=== PATIENT | male | born 2000 | race Caucasian/White ===

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

== ENCOUNTER → 2018-01-29 | Outpatient (CLI) | payer OTHER ==
[~2018-01-29] MED LIST changes: +MIRT15TA6 PO; +MIRT45TA6 PO; +RIZA10TA20 PO; +SERT100T5 PO
[2018-01-29 13:34] LABS: MICROSCOPIC NOT IND
[2018-01-29 13:48] LABS: CULTURE INDICATED? NO
== END | disposition home or self-care (01) ==
LOC: LAB 13:03
PROVIDERS: ATTEND Psychiatry & Neurology Psychiatry
DX: R35.0 Frequency of micturition (principal)
CPT/HCPCS: 81003

== ENCOUNTER 2018-01-30 18:33 | Inpatient (IN) | payer OTHER ==
[~2018-01-30] VITALS: Ht 165.1 cm; Wt 72.9 kg
[~2018-01-30 18:33] MED LIST changes: -MIRT15TA6 PO; -MIRT45TA6 PO; -RIZA10TA20 PO; -SERT100T5 PO
[2018-01-30] MEDS ORDERED: MIRT45TA6 PO (18:56)
[2018-01-30] MEDS ORDERED: RIZA10TA20 PO (18:57)
[2018-01-30] MEDS ORDERED: DIAZ2TAB3 PO (18:58)
[2018-01-30 20:00] LABS: BASOPHILS # (AUTO) 0.01 x10^3/uL (0-0.3); BASOPHILS % (AUTO) 0 % (0-1); EOSINOPHILS # (AUTO) 0.04 x10^3/uL (0-0.8); EOSINOPHILS % (AUTO) 1 % (1-7); LYMPHOCYTES # (AUTO) 2.28 x10^3/uL (1-6.1); LYMPHOCYTES % (AUTO) 47 % (22-44); MD NO; MEAN CORPUSCULAR HEMOGLOBIN 31.5 pg (27.5-34.5); MEAN CORPUSCULAR HGB CONC 34.7 g/dL (33.2-36.2); MEAN CORPUSCULAR VOLUME 90.7 fL (81-97); MEAN PLATELET VOLUME 8.4 fL (7.4-10.4); MONOCYTES # (AUTO) 0.42 x10^3/uL (0-1.4); MONOCYTES % (AUTO) 9 % (2-9); NEUTROPHILS % (AUTO) 43 % (42-75); PLATELET COUNT 228 x10^3/uL (130-400); RED BLOOD COUNT 5.07 x10^6/uL (4.38-5.82); RED CELL DISTRIBUTION WIDTH 12.8 % (9.4-14.8)
[2018-01-30] MEDS ORDERED: SODIUM CHLORIDE FLUSH 10ML SYR IVF ONE (20:00)
[2018-01-30 20:11] LABS: ALBUMIN 3.7 g/dL (3.4-5.0); ANION GAP 13 mmol/L (5-15); CALCIUM 8.4 mg/dL (8.5-10.1); CHLORIDE 112 mmol/L (98-107)
[2018-01-30 20:14] LABS: ALANINE AMINOTRANSFERASE 38 U/L (12-78); ALKALINE PHOSPHATASE 47 U/L (45-117); BILIRUBIN,TOTAL 0.5 mg/dL (0.2-1.0); CREATININE 0.87 mg/dL (0.7-1.3); TOTAL PROTEIN 6.4 g/dL (6.4-8.2)
[2018-01-30 21:03] LABS: MICROSCOPIC NOT IND
[2018-01-30] MEDS ORDERED: LORazepam 2 MG/ML, 1ML ONE ×2 (21:03→22:51)
[2018-01-30 21:07] LABS: CULTURE INDICATED? NO
[2018-01-30] MEDS ORDERED: LORazepam 2 MG/ML, 1ML IVPush STA ×3 (21:09→23:44)
[2018-01-30 21:16] LABS: AMPHETAMINE SCREEN, URINE Negative (Negative); BARBITURATE SCREEN, URINE Negative (Negative); BENZODIAZEPINE SCREEN, URINE Positive (Negative); CANNABINOID SCREEN, URINE Negative (Negative); COCAINE SCREEN, URINE Negative (Negative); METHADONE SCREEN, URINE Negative (Negative); OPIATE SCREEN, URINE Negative (Negative)
[2018-01-30] MEDS ORDERED: VALPROATE SODIUM 500 MG in DEXTROSE 5% 100 ML IV ONE (22:38)
[2018-01-30] MEDS ORDERED: LACOSAMIDE 100 MG in SODIUM CHLORIDE 0.9% 100 ML IV ONE (22:38)
[2018-01-31] MEDS ORDERED: ONDANSETRON 2MG/ML, 2ML IVPush PRN (01:30)
[2018-01-31] MEDS ORDERED: ACETAMINOPHEN 325 MG TABLET PO PRN (01:30)
[2018-01-31] MEDS ORDERED: LORazepam 2 MG/ML, 1ML IVPush PRN (01:30)
[2018-01-31] MEDS ORDERED: ONDANSETRON ODT 4 MG PO PRN (01:30)
[2018-01-31] MEDS ORDERED: PROMETHAZINE 25 MG/ML, 1ML IM PRN (01:30)
[2018-01-31 01:55] VITALS: BP 133/83
[2018-01-31 04:00] VITALS: BP 115/62
[2018-01-31 05:46] LABS: CLOSTRIDIUM DIFFICILE ANTIGEN NEGATIVE; CLOSTRIDIUM DIFFICILE TOXIN NEGATIVE (Negative)
[2018-01-31] MEDS: SODIUM CHLORIDE 0.9% 1,000 ML IV SCH ×2 (07:36→17:00)
[2018-01-31] MEDS: RIZATRIPTAN 10MG TABLET PO SCH (08:51)
[2018-01-31] MEDS: CITALOPRAM 20 MG TABLET PO SCH (08:53)
[2018-01-31] MEDS: MIRTAZAPINE 15 MG TAB.RAPDIS PO SCH (08:53)
[2018-01-31 10:18] LABS: ALANINE AMINOTRANSFERASE 47 U/L (12-78); ALBUMIN 3.5 g/dL (3.4-5.0); ANION GAP 7 mmol/L (5-15); CALCIUM 8.4 mg/dL (8.5-10.1); CHLORIDE 110 mmol/L (98-107); CREATININE 0.88 mg/dL (0.7-1.3)
[2018-01-31 10:20] LABS: ALKALINE PHOSPHATASE 46 U/L (45-117); BILIRUBIN,TOTAL 0.8 mg/dL (0.2-1.0); TOTAL PROTEIN 6.3 g/dL (6.4-8.2)
[2018-01-31] MEDS ORDERED: LACOSAMIDE 100 MG in SODIUM CHLORIDE 0.9% 100 ML IV SCH (11:00)
[2018-01-31 13:51] LABS: GLUCOSE, CSF 55 mg/dL (40-80); TOTAL PROTEIN,CSF 26 mg/dL (15-45)
[2018-01-31 16:29] VITALS: BP 116/63
[2018-01-31] MEDS: VALPROATE SODIUM 250 MG in DEXTROSE 5% 100 ML IV SCH (20:48)
[2018-01-31 21:09] VITALS: BP 132/80
[2018-02-01] MEDS: SODIUM CHLORIDE 0.9% 1,000 ML IV SCH ×3 (03:54→23:53)
[2018-02-01 04:45] VITALS: BP 117/70
[2018-02-01 05:25] LABS: CHLORIDE 111 mmol/L (98-107)
[2018-02-01 05:32] LABS: ALANINE AMINOTRANSFERASE 38 U/L (12-78); ALBUMIN 3.2 g/dL (3.4-5.0); ALKALINE PHOSPHATASE 47 U/L (45-117); ANION GAP 8 mmol/L (5-15); CALCIUM 8.3 mg/dL (8.5-10.1); CREATININE 0.75 mg/dL (0.7-1.3); MEAN CORPUSCULAR HEMOGLOBIN 31.8 pg (27.5-34.5); MEAN CORPUSCULAR HGB CONC 35.5 g/dL (33.2-36.2); MEAN CORPUSCULAR VOLUME 89.6 fL (81-97); MEAN PLATELET VOLUME 8.3 fL (7.4-10.4); PLATELET COUNT 197 x10^3/uL (130-400); RED BLOOD COUNT 4.82 x10^6/uL (4.38-5.82); RED CELL DISTRIBUTION WIDTH 13.3 % (9.4-14.8); TOTAL PROTEIN 5.6 g/dL (6.4-8.2)
[2018-02-01 06:15] LABS: BASOPHILS # (AUTO) 0.02 x10^3/uL (0-0.3); BASOPHILS % (AUTO) 0 % (0-1); EOSINOPHILS # (AUTO) 0.11 x10^3/uL (0-0.8); EOSINOPHILS % (AUTO) 2 % (1-7); LYMPHOCYTES # (AUTO) 2.88 x10^3/uL (1-6.1); LYMPHOCYTES % (AUTO) 47 % (22-44); MD SCAN; MONOCYTES # (AUTO) 0.69 x10^3/uL (0-1.4); MONOCYTES % (AUTO) 11 % (2-9); NEUTROPHILS % (AUTO) 39 % (42-75)
[2018-02-01] MEDS: RIZATRIPTAN 10MG TABLET PO SCH (09:00)
[2018-02-01] MEDS: VALPROATE SODIUM 250 MG in DEXTROSE 5% 100 ML IV SCH ×2 (10:16→20:14)
[2018-02-01] MEDS: CITALOPRAM 20 MG TABLET PO SCH (10:17)
[2018-02-01 10:26] VITALS: BP 112/72
[2018-02-01 19:11] VITALS: BP 121/82
[2018-02-01 19:31] VITALS: BP 124/79
[2018-02-01] MEDS: MIRTAZAPINE 15 MG TAB.RAPDIS PO SCH (20:18)
[2018-02-02 01:20] VITALS: BP 105/69
[2018-02-02] MEDS: RIZATRIPTAN 10MG TABLET PO SCH (09:00)
[2018-02-02] MEDS: SODIUM CHLORIDE 0.9% 1,000 ML IV SCH (09:12)
[2018-02-02] MEDS: CITALOPRAM 20 MG TABLET PO SCH (09:13)
[2018-02-02] MEDS: MIRTAZAPINE 15 MG TAB.RAPDIS PO SCH (09:13)
[2018-02-02] MEDS: DIVALPROEX 250 MG TABLET.DR PO SCH ×2 (09:14→20:25)
[2018-02-02] MEDS: SERTRALINE 50MG TABLET PO SCH (09:14)
[2018-02-02 09:31] VITALS: BP 119/78
[2018-02-02 13:31] VITALS: BP 126/78
[2018-02-02 19:03] VITALS: BP 112/75
[2018-02-02 21:23] VITALS: BP 128/80
[2018-02-03 08:20] VITALS: BP 114/78
[2018-02-03] MEDS: SERTRALINE 50MG TABLET PO SCH (08:39)
[2018-02-03] MEDS: DIVALPROEX 250 MG TABLET.DR PO SCH ×2 (08:39→21:02)
[2018-02-03] MEDS: CITALOPRAM 20 MG TABLET PO SCH (08:39)
[2018-02-03] MEDS: RIZATRIPTAN 10MG TABLET PO SCH (12:20)
[2018-02-03 19:36] VITALS: BP 122/80
[2018-02-03] MEDS: MIRTAZAPINE 15 MG TAB.RAPDIS PO SCH (21:02)
[2018-02-04 08:15] VITALS: BP 116/73
[2018-02-04] MEDS: SERTRALINE 100MG TABLET PO SCH (08:53)
[2018-02-04] MEDS: RIZATRIPTAN 10MG TABLET PO SCH (08:53)
[2018-02-04] MEDS: DIVALPROEX 250 MG TABLET.DR PO SCH ×2 (08:54→21:01)
[2018-02-04 19:43] VITALS: BP 121/78
[2018-02-04] MEDS: MIRTAZAPINE 15 MG TAB.RAPDIS PO SCH (21:01)
[2018-02-05 08:00] VITALS: BP 127/83
[2018-02-05] MEDS: SERTRALINE 100MG TABLET PO SCH (08:09)
[2018-02-05] MEDS: DIVALPROEX 250 MG TABLET.DR PO SCH (08:09)
[2018-02-05] MEDS: RIZATRIPTAN 10MG TABLET PO SCH (08:09)
[2018-02-05] MEDS ORDERED: MIRT15TA6 PO (13:16)
[2018-02-05] MEDS ORDERED: SERT100T5 PO (13:16)
[2018-02-05] MEDS ORDERED: DIVA-59 PO (13:16)
[2018-02-05] MEDS ORDERED: RIZA10TA20 PO (13:16)
== END 2018-02-05 12:00 | DRG 26 ==
LOC: ED 23:04 → EDIP 23:41 → CCU 01-31 01:40 → 4WST 01-31 16:26 → 2N 02-02 21:12
PROVIDERS: ADMIT Hospitalist; ATTEND Hospitalist
PROC: 00963ZZ Drainage of Cerebral Ventricle, Percutaneous Approach (ICD-10-PCS; principal; 2018-01-31)
DX: G40.401 Other generalized epilepsy and epileptic syndromes, not intractable, with status epilepticus (principal); G91.9 Hydrocephalus, unspecified; E72.20 Disorder of urea cycle metabolism, unspecified; R45.851 Suicidal ideations; F29 Unspecified psychosis not due to a substance or known physiological condition; Z88.8 Allergy status to other drugs, medicaments and biological substances; E87.6 Hypokalemia; F41.1 Generalized anxiety disorder; F90.9 Attention-deficit hyperactivity disorder, unspecified type; Z87.820 Personal history of traumatic brain injury; Z91.5 Personal history of self-harm; Z98.2 Presence of cerebrospinal fluid drainage device; F79 Unspecified intellectual disabilities; G93.89 Other specified disorders of brain; Z80.1 Family history of malignant neoplasm of trachea, bronchus and lung; Z82.49 Family history of ischemic heart disease and other diseases of the circulatory system; F32.9 Major depressive disorder, single episode, unspecified
CPT/HCPCS: 36415; 70450; 71045; 74018; 80053; 80164; 80307; 81003; 82140; 82945; 83735; 84100; 84157; 85025; 87070; 87081; 87205; 87324; 89051; 95951; 96365; 96375; 96376; C9254; G0378; J2060; J7030

== ENCOUNTER 2018-02-05 20:37 | Emergency (ER) | payer OTHER ==
[~2018-02-05] VITALS: Ht 162.6 cm; Wt 67.3 kg
[~2018-02-05 20:37] MED LIST changes: +MIRT15TA6 PO; +MIRT45TA6 PO; +RIZA10TA20 PO; +SERT100T5 PO
[2018-02-05 21:17] LABS: BASOPHILS # (AUTO) 0.02 x10^3/uL (0-0.3); BASOPHILS % (AUTO) 0 % (0-1); EOSINOPHILS # (AUTO) 0.04 x10^3/uL (0-0.8); EOSINOPHILS % (AUTO) 1 % (1-7); LYMPHOCYTES # (AUTO) 1.65 x10^3/uL (1-6.1); LYMPHOCYTES % (AUTO) 23 % (22-44); MD NO; MEAN CORPUSCULAR HEMOGLOBIN 31.6 pg (27.5-34.5); MEAN CORPUSCULAR HGB CONC 35.2 g/dL (33.2-36.2); MEAN CORPUSCULAR VOLUME 89.7 fL (81-97); MEAN PLATELET VOLUME 8.4 fL (7.4-10.4); MONOCYTES % (AUTO) 10 % (2-9); NEUTROPHILS # (AUTO) 4.92 x10^3/uL (1.8-8.0); NEUTROPHILS % (AUTO) 67 % (42-75); PLATELET COUNT 243 x10^3/uL (130-400); RED BLOOD COUNT 5.32 x10^6/uL (4.38-5.82)
[2018-02-05 21:30] LABS: ALANINE AMINOTRANSFERASE 41 U/L (12-78); ALBUMIN 4.1 g/dL (3.4-5.0); ANION GAP 12 mmol/L (5-15); CALCIUM 8.9 mg/dL (8.5-10.1); CHLORIDE 109 mmol/L (98-107); CREATININE 1.21 mg/dL (0.7-1.3)
[2018-02-05 21:32] LABS: SALICYLATE LEVEL < 1.7 mg/dL (2.8-20.0)
[2018-02-05 21:33] LABS: ALKALINE PHOSPHATASE 54 U/L (45-117); BILIRUBIN,TOTAL 0.5 mg/dL (0.2-1.0); TOTAL PROTEIN 7.1 g/dL (6.4-8.2)
[2018-02-05 21:34] LABS: ACETAMINOPHEN < 2 mcg/mL (10-30)
[2018-02-05 21:53] LABS: AMPHETAMINE SCREEN, URINE Negative (Negative); BARBITURATE SCREEN, URINE Negative (Negative); BENZODIAZEPINE SCREEN, URINE Negative (Negative); CANNABINOID SCREEN, URINE Negative (Negative); COCAINE SCREEN, URINE Negative (Negative); METHADONE SCREEN, URINE Negative (Negative); OPIATE SCREEN, URINE Negative (Negative)
[2018-02-05 22:13] VITALS: BP 123/67
[2018-02-05] MEDS ORDERED: SODIUM CHLORIDE FLUSH 10ML SYR IVF ONE (22:30)
[2018-02-05] MEDS ORDERED: VALPROATE SODIUM 500 MG in DEXTROSE 5% 100 ML IV ONE (22:30)
== END 2018-02-06 00:31 ==
LOC: ED 20:53
DX: G40.409 Other generalized epilepsy and epileptic syndromes, not intractable, without status epilepticus (principal); Z02.89 Encounter for other administrative examinations
CPT/HCPCS: 36415; 80053; 80164; 80307; 80329; 82140; 85025; 93005; 99285; G0480

== ENCOUNTER 2018-10-15 19:00 | Emergency (ER) | payer MEDICAID ==
[~2018-10-15] VITALS: Ht 165.1 cm; Wt 57.0 kg
[~2018-10-15 19:00] MED LIST changes: +LAMO25TA6 PO; -MIRT15TA6 PO; +MIRT15TA94 PO; +MIRT45TA57 PO; -MIRT45TA6 PO; +SERT100T32 PO; -SERT100T5 PO
--- NOTE | 2018-10-15 19:10 | NUR ---
PT WITH MOTHER WHEN HE HAD A SEIZURE. HE HAD ONE A MONTH AGO ALSO. HAS A HISTORY OF SEIZURES BUT THEY HAVE BEEN HAPPENING ONCE A MONTH NOW, WHICH IS AN INCREASE IN OCCURENCES. PT HAD PROCESS ENGINEERING INTERN SHUNT IMAGING DONE RECENTLY BECAUSE OF THE INCREASE IN SEIZURES AND SHUNT IS PATENT. PT A&O, CONVERSING WITH MOTHER. SEIZURE PADS IN PLACE ON ARRIVAL TO ER
[2018-10-15 19:20] LABS: BASOPHILS # (AUTO) 0.02 x10^3/uL (0-0.3); BASOPHILS % (AUTO) 0 % (0-1); EOSINOPHILS # (AUTO) 0.02 x10^3/uL (0-0.8); EOSINOPHILS % (AUTO) 0 % (1-7); LYMPHOCYTES # (AUTO) 1.03 x10^3/uL (1-6.1); LYMPHOCYTES % (AUTO) 14 % (22-44); MD NO; MEAN CORPUSCULAR HEMOGLOBIN 30.3 pg (27.5-34.5); MEAN CORPUSCULAR HGB CONC 33.8 g/dL (33.2-36.2); MEAN CORPUSCULAR VOLUME 89.7 fL (81-97); MONOCYTES # (AUTO) 0.49 x10^3/uL (0-1.4); MONOCYTES % (AUTO) 7 % (2-9); NEUTROPHILS # (AUTO) 6.03 x10^3/uL (1.8-8.0); NEUTROPHILS % (AUTO) 79 % (42-75); PLATELET COUNT 263 x10^3/uL (130-400); RED BLOOD COUNT 5.04 x10^6/uL (4.38-5.82); RED CELL DISTRIBUTION WIDTH 12.9 % (9.4-14.8)
[2018-10-15] MEDS ORDERED: ACETAMINOPHEN 500 MG TABLET PO ONE (19:30)
[2018-10-15 19:32] LABS: ALANINE AMINOTRANSFERASE 22 U/L (12-78); ANION GAP 7 mmol/L (5-15); CALCIUM 8.4 mg/dL (8.5-10.1); CHLORIDE 104 mmol/L (98-107); CREATININE 1.03 mg/dL (0.7-1.3)
[2018-10-15 19:34] LABS: ALKALINE PHOSPHATASE 55 U/L (45-117); BILIRUBIN,TOTAL 0.4 mg/dL (0.2-1.0); TOTAL PROTEIN 6.3 g/dL (6.4-8.2)
--- NOTE | 2018-10-15 20:03 | NUR ---
NO ADDITIONAL SEIZURE ACTIVITY, NO DISTRESS. AWAITING DISPO
--- NOTE | 2018-10-15 20:32 | NUR ---
TO CT AND BACK. MOTHER EXPRESSING HER CONCERN FOR WHY THE PT HAS INCREASED URINE OUTPUT AFTER SEIZURES. PT HAS URINATED 800 ML AND IS ASKING TO USE URINAL AGAIN. URINE CLEAR AND YELLOW
[2018-10-15 20:45] LABS: MICROSCOPIC NOT IND
[2018-10-15 20:49] LABS: CULTURE INDICATED? NO
--- NOTE | 2018-10-15 21:09 | NUR ---
REPORT TO KARLIE COLLAZO
[2018-10-15 21:24] VITALS: BP 120/72
--- NOTE | 2018-10-15 21:24 | NUR ---
ASSIST RN: PATIENT DISCHARGED WITH INSTRUCTION. VERBALIZED UNDERSTANDING.
== END 2018-10-15 21:27 | disposition home or self-care (01) ==
LOC: ED 20:09
DX: S00.512A Abrasion of oral cavity, initial encounter (principal); G40.319 Generalized idiopathic epilepsy and epileptic syndromes, intractable, without status epilepticus; R51 Headache; X58.XXXA Exposure to other specified factors, initial encounter; Y93.89 Activity, other specified; Y92.89 Other specified places as the place of occurrence of the external cause; Y99.8 Other external cause status
CPT/HCPCS: 36415; 70450; 80053; 81003; 85025; 99284

== ENCOUNTER 2019-02-27 17:45 | Inpatient (IN) | payer MEDICAID ==
[~2019-02-27] VITALS: Ht 165.1 cm; Wt 64.5 kg
[2019-02-27] MEDS ORDERED: SODIUM CHLORIDE FLUSH 10ML SYR IVF ONE (18:30)
[2019-02-27] MEDS ORDERED: ONDANSETRON 2MG/ML, 2ML ONE (18:45)
[2019-02-27] MEDS ORDERED: LORazepam 2 MG/ML, 1ML ONE (18:45)
[2019-02-27] MEDS ORDERED: LORazepam 2 MG/ML, 1ML IVPush ONE (19:00)
[2019-02-27] MEDS ORDERED: ONDANSETRON 2MG/ML, 2ML IVPush ONE (19:00)
[2019-02-27 19:08] LABS: BASOPHILS # (AUTO) 0.01 x10^3/uL (0-0.3); BASOPHILS % (AUTO) 0 % (0-1); EOSINOPHILS # (AUTO) 0.15 x10^3/uL (0-0.8); EOSINOPHILS % (AUTO) 1 % (1-7); LYMPHOCYTES # (AUTO) 0.93 x10^3/uL (1-6.1); LYMPHOCYTES % (AUTO) 7 % (22-44); MD NO; MEAN CORPUSCULAR HEMOGLOBIN 31.2 pg (27.5-34.5); MEAN CORPUSCULAR HGB CONC 34.8 g/dL (33.2-36.2); MEAN CORPUSCULAR VOLUME 89.7 fL (81-97); MEAN PLATELET VOLUME 7.8 fL (7.4-10.4); MONOCYTES # (AUTO) 0.81 x10^3/uL (0-1.4); MONOCYTES % (AUTO) 6 % (2-9); NEUTROPHILS # (AUTO) 12.42 x10^3/uL (1.8-8.0); NEUTROPHILS % (AUTO) 87 % (42-75); PLATELET COUNT 285 x10^3/uL (130-400); RED BLOOD COUNT 5.27 x10^6/uL (4.38-5.82); RED CELL DISTRIBUTION WIDTH 12.2 % (9.4-14.8)
[2019-02-27 19:19] LABS: MICROSCOPIC AUTO
[2019-02-27 19:21] LABS: ALBUMIN 4.1 g/dL (3.4-5.0); ANION GAP 12 mmol/L (5-15); CALCIUM 8.7 mg/dL (8.5-10.1); CHLORIDE 97 mmol/L (98-107)
[2019-02-27 19:25] LABS: ALANINE AMINOTRANSFERASE 47 U/L (12-78); ALKALINE PHOSPHATASE 71 U/L (45-117); BILIRUBIN,TOTAL 0.6 mg/dL (0.2-1.0); CREATININE 0.96 mg/dL (0.7-1.3); TOTAL PROTEIN 6.7 g/dL (6.4-8.2)
[2019-02-27 19:27] LABS: AMPHETAMINE SCREEN, URINE Negative (Negative); BARBITURATE SCREEN, URINE Negative (Negative); BENZODIAZEPINE SCREEN, URINE Negative (Negative); CANNABINOID SCREEN, URINE Negative (Negative); CULTURE INDICATED? NO; METHADONE SCREEN, URINE Negative (Negative)
[2019-02-27 19:28] LABS: COCAINE SCREEN, URINE Negative (Negative); OPIATE SCREEN, URINE Negative (Negative)
[2019-02-27] MEDS ORDERED: GADOTERATE 7.5 MMOL/15 ML SYR ONE (19:39)
[2019-02-27] MEDS ORDERED: HYDROcodone/APAP 5/325 TABLET PO ONE (20:30)
[2019-02-27] MEDS ORDERED: SODIUM CHLORIDE FLUSH 10ML SYR IVF PRN (20:30)
[2019-02-27] MEDS ORDERED: HYDROcodone/APAP 5/325 TABLET ONE (20:37)
[2019-02-27 21:47] VITALS: BP 139/76
[2019-02-27] MEDS ORDERED: POTASSIUM CHLORIDE 20 MEQ TAB.ER.PRT PO ONE (22:30)
[2019-02-27] MEDS ORDERED: LORazepam 2 MG/ML, 1ML IVPush PRN (22:30)
[2019-02-27] MEDS ORDERED: LIDODERM 5% PATCH TD PRN (22:30)
[2019-02-27] MEDS ORDERED: DOCUSATE 100 MG CAPSULE PO PRN (22:30)
[2019-02-27] MEDS ORDERED: ONDANSETRON 2MG/ML, 2ML IVPush PRN (22:30)
[2019-02-27] MEDS ORDERED: ACETAMINOPHEN 325 MG TABLET PO PRN (22:30)
[2019-02-27] MEDS ORDERED: hydrALAzine 20 MG/ML, 1ML IVPush PRN (22:30)
[2019-02-28 03:23] VITALS: BP 114/72
[2019-02-28 05:42] LABS: ANION GAP 5 mmol/L (5-15); CALCIUM 9.2 mg/dL (8.5-10.1); CHLORIDE 107 mmol/L (98-107)
[2019-02-28 05:43] LABS: CREATININE 1.02 mg/dL (0.7-1.3)
[2019-02-28 05:53] LABS: BASOPHILS # (AUTO) 0.03 x10^3/uL (0-0.3); BASOPHILS % (AUTO) 0 % (0-1); EOSINOPHILS # (AUTO) 0.04 x10^3/uL (0-0.8); EOSINOPHILS % (AUTO) 1 % (1-7); LYMPHOCYTES % (AUTO) 26 % (22-44); MD NO; MEAN CORPUSCULAR HEMOGLOBIN 30.6 pg (27.5-34.5); MEAN CORPUSCULAR HGB CONC 34.1 g/dL (33.2-36.2); MEAN CORPUSCULAR VOLUME 89.8 fL (81-97); MEAN PLATELET VOLUME 7.7 fL (7.4-10.4); MONOCYTES # (AUTO) 0.86 x10^3/uL (0-1.4); MONOCYTES % (AUTO) 11 % (2-9); NEUTROPHILS # (AUTO) 4.98 x10^3/uL (1.8-8.0); NEUTROPHILS % (AUTO) 62 % (42-75); PLATELET COUNT 300 x10^3/uL (130-400); RED CELL DISTRIBUTION WIDTH 12.6 % (9.4-14.8)
[2019-02-28] MEDS: SERTRALINE 100MG TABLET PO SCH (08:05)
[2019-02-28] MEDS: LAMOTRIGINE 100 MG TABLET PO SCH (08:05)
[2019-02-28] MEDS: ENOXAPARIN 40 MG/0.4 ML SQ SCH (08:05)
[2019-02-28 08:54] VITALS: BP 119/74
[2019-02-28] MEDS ORDERED: MIRTAZAPINE 15 MG TABLET PO SCH ×2 (09:00→20:30)
[2019-02-28] MEDS ORDERED: SODIUM CHLORIDE 0.9% 1,000ML IVBOLUS ONE (10:00)
[2019-02-28] MEDS ORDERED: PHENOL THROAT SPRAY BOTTLE MM PRN (10:00)
[2019-02-28] MEDS: LIDOCAINE 2% VISCOUS 15 ML UDC MM PRN ×2 (10:52→12:38)
[2019-02-28 14:14] VITALS: BP 122/72
[2019-02-28 19:28] VITALS: BP 124/75
[2019-03-01 01:16] VITALS: BP 104/67
[2019-03-01 08:30] VITALS: BP 115/75
[2019-03-01] MEDS: SERTRALINE 100MG TABLET PO SCH (09:01)
[2019-03-01] MEDS: LAMOTRIGINE 100 MG TABLET PO SCH (09:01)
[2019-03-01] MEDS: ENOXAPARIN 40 MG/0.4 ML SQ SCH (09:01)
[2019-03-01] MEDS ORDERED: LAMOTRIGINE 200 MG TABLET PO ONE (12:00)
[2019-03-01] MEDS ORDERED: PHEN177S5 MM (13:39)
[2019-03-01] MEDS ORDERED: LAMO100T PO (13:39)
[2019-03-01 14:41] VITALS: BP 119/74
[2019-03-01] MEDS ORDERED: FLU VACC QS2019-20 36MOS UP/PF 0.5 ML IM-VACC ONE (15:30)
[2019-03-01] MEDS ORDERED: MIRTAZAPINE 15 MG TABLET PO SCH (21:00)
[2019-03-02] MEDS ORDERED: LAMOTRIGINE 100 MG TABLET PO SCH (09:00)
== END 2019-03-01 15:45 | disposition home or self-care (01) | DRG 101 ==
LOC: ED 20:41 → EDIP 21:06 → 4EST 21:17
PROVIDERS: ADMIT Internal Medicine; ATTEND Internal Medicine
DX: G40.A09 Absence epileptic syndrome, not intractable, without status epilepticus (principal); F33.9 Major depressive disorder, recurrent, unspecified; E87.1 Hypo-osmolality and hyponatremia; E86.9 Volume depletion, unspecified; E87.6 Hypokalemia; F79 Unspecified intellectual disabilities; F90.9 Attention-deficit hyperactivity disorder, unspecified type; G93.89 Other specified disorders of brain; Z98.2 Presence of cerebrospinal fluid drainage device; Z87.820 Personal history of traumatic brain injury; Z82.49 Family history of ischemic heart disease and other diseases of the circulatory system
CPT/HCPCS: 36415; 70553; 80048; 80053; 80175; 80307; 81001; 85025; 87081; 87147; 87880; 90686; 93005; 96374; G0378; J1650; J2405; A9575; J2060; J7030

== ENCOUNTER 2019-05-22 17:41 | Inpatient (IN) | payer MEDICAID ==
[~2019-05-22] VITALS: Ht 165.1 cm; Wt 65.6 kg
[~2019-05-22 17:41] MED LIST changes: +LAMO100T PO; +[UNRECOGNIZED DRUG - CODE] MM
--- NOTE | 2019-05-22 17:51 | NUR ---
Pt hx of tonic clonic sz and has had "too many to count" seizures since 1500 this pm. Seizures decsribed tonight more of a focal seizure, denies focal sz in past. Actively sz for remsa, given 7 mg versed en route. 2 mg last given @1720. Becoming increasingly more lucid in ed. Strengths strong and equal. Pupils "blown" and sluggish to respond. Pt is a+ox2, but responds to all commands. Aware of who mom is in room. Presents w/ moderate nystagmus and "the room is spinning." Denies any drug use or etoh. Sz typically controlled w/ medications and neurologist Oc. All monitoring applied. Pt hr elevated and mild temp noted. Sz pads applied, suction in place, ativan prepped via md verbal order.
[2019-05-22] MEDS ORDERED: LORazepam 2 MG/ML, 1ML ONE ×3 (17:56→20:09)
[2019-05-22] MEDS ORDERED: LORazepam 2 MG/ML, 1ML IVPush ONE ×2 (18:00→20:30)
[2019-05-22] MEDS ORDERED: SODIUM CHLORIDE FLUSH 10ML SYR IVF ONE (18:00)
[2019-05-22 18:10] LABS: BASOPHILS # (AUTO) 0.03 x10^3/uL (0-0.3); BASOPHILS % (AUTO) 1 % (0-1); EOSINOPHILS % (AUTO) 0 % (1-7); LYMPHOCYTES # (AUTO) 1.02 x10^3/uL (1-6.1); LYMPHOCYTES % (AUTO) 14 % (22-44); MD NO; MEAN CORPUSCULAR HEMOGLOBIN 30.6 pg (27.5-34.5); MEAN CORPUSCULAR HGB CONC 34.3 g/dL (33.2-36.2); MEAN CORPUSCULAR VOLUME 89.3 fL (81-97); MONOCYTES # (AUTO) 0.42 x10^3/uL (0-1.4); MONOCYTES % (AUTO) 6 % (2-9); NEUTROPHILS # (AUTO) 5.88 x10^3/uL (1.8-8.0); NEUTROPHILS % (AUTO) 80 % (42-75); PLATELET COUNT 296 x10^3/uL (130-400); RED CELL DISTRIBUTION WIDTH 12.2 % (9.4-14.8)
--- NOTE | 2019-05-22 18:26 | NUR ---
Report from ZAY Marshall.
--- NOTE | 2019-05-22 18:32 | NUR ---
Patient A&Ox3, but remains lethargic. Parents at bedside. Awaiting CT.
[2019-05-22 18:37] LABS: ALANINE AMINOTRANSFERASE 29 U/L (12-78); ALBUMIN 3.8 g/dL (3.4-5.0); ANION GAP 7 mmol/L (5-15); CALCIUM 8.3 mg/dL (8.5-10.1); CHLORIDE 114 mmol/L (98-107); CREATININE 0.85 mg/dL (0.7-1.3)
[2019-05-22 18:39] LABS: ALKALINE PHOSPHATASE 66 U/L (45-117); BILIRUBIN,TOTAL 0.4 mg/dL (0.2-1.0); TOTAL PROTEIN 6.6 g/dL (6.4-8.2)
[2019-05-22 18:40] LABS: SALICYLATE LEVEL < 1.7 mg/dL (2.8-20.0)
--- NOTE | 2019-05-22 19:10 | NUR ---
Back from CT. Per ZAY Marshall patient had several petite mal seizures in CT. Medicated by ZAY Marshall. Will continue to monitor.
--- NOTE | 2019-05-22 19:10 | NUR ---
Pt had multiple petite mal sz w/ minimal postictal phase in ct. This rn gave 2 mg iv ativan per emar. ERMD made aware and main nurse made aware. Pt back in room and a+ox3 and converses appropriately. All monitoring reapplied.
--- NOTE | 2019-05-22 19:24 | NUR ---
A&Ox4. Remains tachycardic. BP stable.
[2019-05-22] MEDS ORDERED: VALPROATE SODIUM 100 MG/ML, 5ML IV STA (19:52)
--- NOTE | 2019-05-22 20:15 | NUR ---
Patient had multiple petite mal seizures while in room. Eileen ramirez and eros go.
[2019-05-22] MEDS ORDERED: VALPROATE SODIUM 1,000 MG in DEXTROSE 5% 100 ML IV ONE (20:30)
--- NOTE | 2019-05-22 20:31 | NUR ---
HR remains around 135-140. Patient postictal. Straight cath urine sent to lab. Plan is to admit to the ICU.
[2019-05-22 20:58] LABS: MICROSCOPIC NOT IND
[2019-05-22] MEDS ORDERED: SODIUM CHLORIDE 0.9% 1,000ML IVBOLUS ONE ×2 (21:00→23:00)
[2019-05-22 21:01] LABS: CULTURE INDICATED? NO
[2019-05-22 21:07] LABS: AMPHETAMINE SCREEN, URINE Negative (Negative); BARBITURATE SCREEN, URINE Negative (Negative); BENZODIAZEPINE SCREEN, URINE Positive (Negative); CANNABINOID SCREEN, URINE Negative (Negative); COCAINE SCREEN, URINE Negative (Negative); METHADONE SCREEN, URINE Negative (Negative); OPIATE SCREEN, URINE Negative (Negative)
--- NOTE | 2019-05-22 21:07 | NUR ---
Report received from ZAY Montez Pt responding to simple questions from mom. Bilateral feet shaking noted. Depakote continues to run. Pt placed on 2L NC for sats in the low 90's. 2L NS started. 16g PIV placed to right forearm. Admitting MD at bedside.
[2019-05-22] MEDS ORDERED: SODIUM CHLORIDE 0.9% 1,000 ML IV ONE (21:10)
--- NOTE | 2019-05-22 21:47 | NUR ---
Report called to ZAY Doll Pt status unchanged.
[2019-05-22] MEDS ORDERED: ACETAMINOPHEN 650 MG SUPP PR PRN (22:00)
[2019-05-22] MEDS ORDERED: LORazepam 2 MG/ML, 1ML IV PRN (22:00)
[2019-05-22] MEDS ORDERED: THIAMINE 100 MG in SODIUM CHLORIDE 0.9% 50 ML IV ONE (22:00)
[2019-05-22] MEDS ORDERED: hydrALAzine 20 MG/ML, 1ML IVPush PRN (22:00)
[2019-05-22] MEDS: LACTATED RINGERS 1,000 ML IV SCH (23:00)
[2019-05-23] MEDS ORDERED: CALCIUM GLUCONATE 4.6 MEQ in SODIUM CHLORIDE 0.9% 50 ML IV ONE (01:30)
[2019-05-23] MEDS ORDERED: MAGNESIUM SULFATE/D5W 100 ML IV ONE (01:30)
[2019-05-23 04:36] LABS: BASOPHILS # (AUTO) 0.03 x10^3/uL (0-0.3); BASOPHILS % (AUTO) 0 % (0-1); EOSINOPHILS % (AUTO) 0 % (1-7); LYMPHOCYTES # (AUTO) 1.64 x10^3/uL (1-6.1); LYMPHOCYTES % (AUTO) 16 % (22-44); MD NO; MEAN CORPUSCULAR HEMOGLOBIN 30.5 pg (27.5-34.5); MEAN CORPUSCULAR HGB CONC 34.1 g/dL (33.2-36.2); MEAN CORPUSCULAR VOLUME 89.6 fL (81-97); MONOCYTES % (AUTO) 6 % (2-9); NEUTROPHILS # (AUTO) 8.23 x10^3/uL (1.8-8.0); NEUTROPHILS % (AUTO) 78 % (42-75); PLATELET COUNT 294 x10^3/uL (130-400); RED BLOOD COUNT 4.81 x10^6/uL (4.38-5.82); RED CELL DISTRIBUTION WIDTH 12.5 % (9.4-14.8)
[2019-05-23 04:43] LABS: ALANINE AMINOTRANSFERASE 20 U/L (12-78); ALBUMIN 3.5 g/dL (3.4-5.0); ANION GAP 11 mmol/L (5-15); CHLORIDE 112 mmol/L (98-107); CREATININE 0.94 mg/dL (0.7-1.3)
[2019-05-23 04:45] LABS: ALKALINE PHOSPHATASE 61 U/L (45-117); BILIRUBIN,TOTAL 0.5 mg/dL (0.2-1.0)
[2019-05-23 05:13] VITALS: BP 123/61
[2019-05-23] MEDS: LACTATED RINGERS 1,000 ML IV SCH (06:09)
[2019-05-23] MEDS ORDERED: DIVALPROEX 250 MG TABLET.DR PO SCH (08:00)
[2019-05-23] MEDS ORDERED: LACOSAMIDE 200 MG in SODIUM CHLORIDE 0.9% 100 ML IV STA (08:50)
[2019-05-23] MEDS ORDERED: LAMOTRIGINE 100 MG TABLET PO SCH (09:00)
[2019-05-23] MEDS: SODIUM CHLORIDE FLUSH 3ML SYRINGE IVF SCH ×2 (09:00→21:00)
[2019-05-23] MEDS: SODIUM CHLORIDE 0.9% 1,000 ML IV SCH ×2 (09:25→17:08)
[2019-05-23] MEDS: SODIUM CHLORIDE FLUSH 10ML SYR IVF PRN (09:26)
[2019-05-23] MEDS ORDERED: PROCHLORPERAZINE 5 MG/ML, 2ML IVPush ONE (09:30)
[2019-05-23] MEDS ORDERED: DIPHENHYDRAMINE 50 MG/ML, 1ML IVPush ONE (09:30)
[2019-05-23] MEDS ORDERED: LAMOTRIGINE 200 MG TABLET PO SCH ×2 (10:00)
[2019-05-23 12:58] VITALS: BP 121/73
[2019-05-23 19:32] VITALS: BP 126/81
[2019-05-23] MEDS: ONDANSETRON 2MG/ML, 2ML IV PRN (21:25)
[2019-05-23] MEDS: LAMOTRIGINE 200 MG TABLET PO SCH (21:26)
[2019-05-23] MEDS: LACOSAMIDE 50 MG TAB PO SCH (21:27)
[2019-05-23 22:20] LABS: RAPID INFLUENZA A Negative (Negative); RAPID INFLUENZA B Negative (Negative)
[2019-05-24 00:51] VITALS: BP 116/65
[2019-05-24] MEDS: SODIUM CHLORIDE 0.9% 1,000 ML IV SCH ×3 (03:00→18:00)
[2019-05-24 07:48] VITALS: BP 133/73
[2019-05-24] MEDS: LAMOTRIGINE 200 MG TABLET PO SCH ×3 (08:40→20:33)
[2019-05-24] MEDS: SODIUM CHLORIDE FLUSH 3ML SYRINGE IVF SCH ×2 (08:41→20:35)
[2019-05-24] MEDS: LACOSAMIDE 50 MG TAB PO SCH ×3 (08:41→20:33)
[2019-05-24] MEDS ORDERED: MECLIZINE 25 MG TABLET PO PRN (09:30)
[2019-05-24] MEDS ORDERED: LAMOTRIGINE 100 MG TABLET PO ONE (13:00)
[2019-05-24 20:27] VITALS: BP 116/72
[2019-05-24 20:28] VITALS: BP 115/71
[2019-05-24 20:29] VITALS: BP 113/74
[2019-05-24] MEDS ORDERED: LAMOTRIGINE 200 MG TABLET PO SCH (21:00)
[2019-05-24] MEDS ORDERED: LACOSAMIDE 50 MG TAB PO SCH (21:00)
[2019-05-24] MEDS: ONDANSETRON 2MG/ML, 2ML IV PRN (21:19)
[2019-05-25 02:44] VITALS: BP 103/67
[2019-05-25 06:46] LABS: BASOPHILS # (AUTO) 0.03 x10^3/uL (0-0.3); BASOPHILS % (AUTO) 1 % (0-1); EOSINOPHILS # (AUTO) 0.04 x10^3/uL (0-0.8); EOSINOPHILS % (AUTO) 1 % (1-7); LYMPHOCYTES # (AUTO) 1.53 x10^3/uL (1-6.1); LYMPHOCYTES % (AUTO) 27 % (22-44); MD NO; MEAN CORPUSCULAR HEMOGLOBIN 30.6 pg (27.5-34.5); MEAN CORPUSCULAR HGB CONC 34.1 g/dL (33.2-36.2); MEAN CORPUSCULAR VOLUME 89.7 fL (81-97); MEAN PLATELET VOLUME 7.8 fL (7.4-10.4); MONOCYTES # (AUTO) 0.49 x10^3/uL (0-1.4); MONOCYTES % (AUTO) 9 % (2-9); NEUTROPHILS # (AUTO) 3.59 x10^3/uL (1.8-8.0); NEUTROPHILS % (AUTO) 63 % (42-75); PLATELET COUNT 263 x10^3/uL (130-400); RED BLOOD COUNT 4.96 x10^6/uL (4.38-5.82); RED CELL DISTRIBUTION WIDTH 12.1 % (9.4-14.8)
[2019-05-25 06:52] LABS: ANION GAP 8 mmol/L (5-15); CALCIUM 8.7 mg/dL (8.5-10.1); CHLORIDE 111 mmol/L (98-107); CREATININE 0.82 mg/dL (0.7-1.3)
[2019-05-25] MEDS: LAMOTRIGINE 200 MG TABLET PO SCH ×2 (07:48→20:31)
[2019-05-25] MEDS: LACOSAMIDE 50 MG TAB PO SCH ×2 (07:49→20:31)
[2019-05-25] MEDS: SODIUM CHLORIDE FLUSH 3ML SYRINGE IVF SCH ×2 (07:50→20:31)
[2019-05-25 08:52] VITALS: BP_SYST 127; BP_SYST 146; BP_DIAS 78; BP_DIAS 80
[2019-05-25] MEDS: ONDANSETRON 2MG/ML, 2ML IV PRN (10:04)
[2019-05-25 15:02] VITALS: BP 121/71
[2019-05-25 20:05] VITALS: BP 123/73
[2019-05-26 01:17] VITALS: BP 136/71
[2019-05-26] MEDS: SODIUM CHLORIDE FLUSH 3ML SYRINGE IVF SCH (09:09)
[2019-05-26] MEDS: LAMOTRIGINE 200 MG TABLET PO SCH (09:09)
[2019-05-26] MEDS: LACOSAMIDE 50 MG TAB PO SCH (09:09)
[2019-05-26] MEDS ORDERED: MECL25TA4 PO (11:27)
[2019-05-26] MEDS ORDERED: LAMO200T2 PO (11:27)
[2019-05-26] MEDS ORDERED: LACO50TA PO (11:27)
[2019-05-26] MEDS ORDERED: ONDA4TAB7 PO (11:27)
== END 2019-05-26 13:00 | disposition home or self-care (01) | DRG 53 ==
LOC: ED 18:03 → EDIP 21:37 → ICU 22:01 → 4EST 05-23 12:50 → DCLOUNGE 05-26 12:53
PROVIDERS: ADMIT Family Medicine; ATTEND Hospitalist
DX: G40.411 Other generalized epilepsy and epileptic syndromes, intractable, with status epilepticus (principal); R13.10 Dysphagia, unspecified; F32.9 Major depressive disorder, single episode, unspecified; F43.10 Post-traumatic stress disorder, unspecified; X58.XXXA Exposure to other specified factors, initial encounter; Y93.89 Activity, other specified; Y92.89 Other specified places as the place of occurrence of the external cause; Y99.8 Other external cause status; F90.9 Attention-deficit hyperactivity disorder, unspecified type; H57.04 Mydriasis; Z87.820 Personal history of traumatic brain injury; Z98.2 Presence of cerebrospinal fluid drainage device; H55.09 Other forms of nystagmus; Z88.8 Allergy status to other drugs, medicaments and biological substances
CPT/HCPCS: 36415; 70450; 70551; 71045; 80048; 80053; 80175; 80307; 81003; 82140; 82330; 82550; 82607; 83605; 83735; 84100; 84145; 84443; 85025; 86592; 87040; 87081; 87400; 87806; 93005; 95816; 96365; 96367; 96375; 96376; C9254; G0378; J0610; J2405; J3411; G0475; J0780; J1200; J2060; J7030; J7120